=== PATIENT | male | born 1940 | race African-American/Black ===

== ENCOUNTER 2016-11-30 16:44 | Inpatient (IN) | payer MEDICAID ==
[~2016-11-30] VITALS: Ht 165.1 cm; Wt 67.4 kg
[2016-11-30] MEDS ORDERED: methylPREDNISolone SOD SUCC 125 MG/2 ML VL IV ONE (18:15)
[2016-11-30 18:33] LABS: Basophils # (auto) 0.1 uL; Basophils % (auto) 0.7 % (0.0-2.0); Eosinophils # (auto) 0.1 uL; Eosinophils % (auto) 0.9 % (0.0-7.0); Hematocrit 38.6 % (41.0-53.0); Hemoglobin 12.5 g/dL (13.5-17.5); Lymphocytes # (auto) 2.5 uL; Lymphocytes % (auto) 25.3 % (10.0-50.0); Mean Corpuscular Hgb Conc. 32.5 g/dL (32.0-36.0); Mean Corpuscular Volume 86.4 fL (80.0-100.0); Mean Platelet Volume 9.6 fL (6.9-10.8); Monocytes # (auto) 0.8 uL; Monocytes % (auto) 8.2 % (0.0-12.0); Neutrophils # (auto) 6.5 uL; Neutrophils % (auto) 64.9 % (37.0-80.0); Nucleated Red Blood Cells % 0.1 %; Platelet Count (auto) 200 10^3/uL (140-450); Red Cell Distribution Width 15.9 % (11.8-14.3)
[2016-11-30] MEDS ORDERED: GASTROGRAFIN 120 ML SOL ONE (18:37)
[2016-11-30 18:39] LABS: Albumin 3.5 g/dL (3.4-5.0); Alkaline Phosphatase 87 U/L (45-117); Anion Gap 12 (5-15); Aspartate Aminotransferase 32 U/L (15-37); BUN/Creatinine Ratio 14.1; Bilirubin, Total 0.6 mg/dL (0.2-1.0); Blood Urea Nitrogen 14 mg/dL (7-18); Calcium 8.8 mg/dL (8.5-10.1); Carbon Dioxide 21 mmol/L (21-32); Chloride 110 mmol/L (98-107); GFR African American 95 mL/min; GFR Non-African American 79 mL/min; Glucose 105 mg/dL (74-106); Sodium 143 mmol/L (136-145)
[2016-11-30 20:14] LABS: B-Type Natriuretic Peptide 25.8 pg/mL (0-100)
[2016-11-30 20:22] LABS: Temperature: 22.4 C (20.0-25.0)
[2016-11-30] MEDS ORDERED: AZITHROMYCIN 500MG/D5W 250ML 250 ML IV ONE (21:00)
[2016-11-30] MEDS ORDERED: MORPHINE SULF INJ 2 MG/ML SYRINGE 1ML IV PRN (21:00)
[2016-11-30] MEDS ORDERED: ONDANSETRON HCL 4 MG/2 ML VIAL IV PRN (21:00)
[2016-11-30] MEDS ORDERED: HYDROcodone-ACET 5/325MG TAB PO PRN (21:00)
[2016-11-30] MEDS ORDERED: TEMAZEPAM 15 MG CAP PO PRN (21:00)
[2016-11-30] MEDS ORDERED: NAPROXEN 500 MG TAB PO PRN (21:00)
[2016-11-30] MEDS ORDERED: PROMETHAZINE W/CODEINE 5 ML ORAL SYRUP PO PRN (21:00)
[2016-11-30] MEDS: GABAPENTIN 100 MG CAP PO SCH (22:00)
[2016-11-30] MEDS ORDERED: HYDR-4683 PO (22:07)
[2016-11-30 22:08] VITALS: BP 133/98
[2016-12-01 04:56] VITALS: BP 137/69
[2016-12-01] MEDS: GABAPENTIN 100 MG CAP PO SCH ×3 (05:51→21:40)
[2016-12-01 08:00] VITALS: BP 142/79
[2016-12-01] MEDS: AZITHROMYCIN 500MG/D5W 250ML 250 ML IV SCH (10:25)
[2016-12-01 13:00] VITALS: BP 149/65
[2016-12-01] MEDS: ALBUTEROL SULF 2.5 MG/0.5ML(0.5%) NEB SOLN NEB SCH ×2 (14:23→19:33)
[2016-12-01] MEDS: PANTOPRAZOLE 40 MG/10 ML VIAL IV SCH (15:08)
[2016-12-01 16:10] VITALS: BP 149/65
[2016-12-01 16:30] VITALS: BP 136/71
[2016-12-01 22:00] VITALS: BP 114/63
[2016-12-02] MEDS: ALBUTEROL SULF 2.5 MG/0.5ML(0.5%) NEB SOLN NEB SCH ×3 (03:53→12:00)
[2016-12-02 05:00] VITALS: BP 126/70
[2016-12-02] MEDS: GABAPENTIN 100 MG CAP PO SCH ×2 (06:00→14:16)
[2016-12-02 07:04] LABS: INR 1.02 (0.9-1.15); Partial Thromboplastin Time 24.9 sec (22.64-33.71); Prothrombin Time 11.1 sec (9.37-12.3)
[2016-12-02 08:00] VITALS: BP 118/61
[2016-12-02 09:00] VITALS: BP 118/61
[2016-12-02] MEDS: AZITHROMYCIN 500MG/D5W 250ML 250 ML IV SCH (09:20)
[2016-12-02] MEDS: PANTOPRAZOLE 40 MG/10 ML VIAL IV SCH (09:21)
[2016-12-02] MEDS ORDERED: LIDOCAINE VISCOUS 2% 15ML UD ONE (10:47)
[2016-12-02] MEDS ORDERED: SODIUM CHLORIDE LOCK 10 ML ONE (10:47)
[2016-12-02] MEDS ORDERED: diphenhdrAMINE HCL 50 MG/1 ML VL ONE (10:48)
[2016-12-02] MEDS: MIDAZOLAM HCL 5 MG/ML-1ML VIAL ONE ×2 (12:03→12:08)
[2016-12-02] MEDS: fentaNYL CITRATE 100 MCG/2 ML VL ONE ×2 (12:03→12:08)
[2016-12-02 13:56] VITALS: BP 114/67
[2016-12-02 16:12] VITALS: BP 120/67
[2016-12-02] MEDS ORDERED: PANTOPRAZOLE 40 MG TAB PO SCH (22:00)
== END 2016-12-02 17:40 | disposition home or self-care (01) | DRG 243 ==
LOC: ER 16:44 → OVERFLOW 16:45 → WEST WING 21:40
PROVIDERS: ADMIT Nurse Practitioner Family; ATTEND Family Medicine
PROC: 0DB28ZX Excision of Middle Esophagus, Via Natural or Artificial Opening Endoscopic, Diagnostic (ICD-10-PCS; principal; 2016-12-02 12:00)
DX: K22.2 Esophageal obstruction (principal); J18.1 Lobar pneumonia, unspecified organism; C34.90 Malignant neoplasm of unspecified part of unspecified bronchus or lung; K22.10 Ulcer of esophagus without bleeding; I70.0 Atherosclerosis of aorta; M19.90 Unspecified osteoarthritis, unspecified site; Z80.9 Family history of malignant neoplasm, unspecified
CPT/HCPCS: 36415; 71010; 74220; 80053; 83605; 83880; 84484; 85025; 85610; 85730; 87040; 94640; 94761; 96374; 96375; C9113; J2250

== ENCOUNTER 2017-04-06 16:36 | Inpatient (IN) | payer MEDICAID ==
[~2017-04-06] VITALS: Ht 175.3 cm; Wt 77.0 kg
[~2017-04-06 16:36] MED LIST: HYDR-4683 PO
[2017-04-06] MEDS: SODIUM CHLORIDE 0.9% 1,000 ML IV ONE (16:42)
[2017-04-06] MEDS ORDERED: DOCUSATE SOD 100 MG CAP PO PRN (18:30)
[2017-04-06] MEDS ORDERED: ONDANSETRON HCL 4 MG/2 ML VIAL IV PRN (18:30)
[2017-04-06] MEDS ORDERED: TEMAZEPAM 15 MG CAP PO PRN (18:30)
[2017-04-06] MEDS ORDERED: MORPHINE SULFATE 4 MG/ML SYR/VIAL IV PRN (18:30)
[2017-04-06] MEDS ORDERED: SODIUM CHLORIDE 0.9% 2,000 ML IV ONE (18:30)
[2017-04-06] MEDS ORDERED: ACETAMINOPHEN 325 MG TAB PO PRN (18:30)
[2017-04-06] MEDS ORDERED: HYDROcodone-ACET 5/325MG TAB PO PRN (18:30)
[2017-04-06] MEDS ORDERED: cefTRIAXone 1GM/10ml IVPUSH 10 ML IV ONE (18:30)
[2017-04-06 18:36] LABS: Hematocrit 23.6 % (41.0-53.0); Hemoglobin 7.5 g/dL (13.5-17.5); Mean Corpuscular Hemoglobin 28.2 pg (28.0-32.0); Mean Corpuscular Hgb Conc. 31.8 g/dL (32.0-36.0); Mean Corpuscular Volume 88.7 fL (80.0-100.0); Platelet Count (auto) 267 10^3/uL (140-450); Red Blood Cells 2.66 10^6/uL (4.5-5.90); White Blood Cell 13.3 10^3/uL (4.4-10.8)
[2017-04-06 18:42] LABS: Basophils % (manual) 0 (0.0-2.0); Blast Cells 0; Eosinophils % (manual) 0 (0-7); Metamyelocytes % 0; Myelocytes % 0; Promyelocytes % 0
[2017-04-06] MEDS ORDERED: MULTIPLE VITAMIN TAB PO ONE (18:45)
[2017-04-06 18:48] LABS: Albumin 1.6 g/dL (3.4-5.0); BUN/Creatinine Ratio 26.3; Calcium 7.8 mg/dL (8.5-10.1); Potassium 3.4 mmol/L (3.5-5.1)
[2017-04-06 18:49] LABS: INR 1.17 (0.9-1.15); Partial Thromboplastin Time 29.4 sec (22.64-33.71); Prothrombin Time 12.8 sec (9.37-12.3)
[2017-04-06 18:53] LABS: Bilirubin, Total 0.4 mg/dL (0.2-1.0); Lactic Acid w/Reflex 2.1 mmol/L (0.4-2.0); Total Protein 6.9 g/dL (6.4-8.2)
[2017-04-06] MEDS: SODIUM CHLORIDE 0.9% 1,000 ML IV SCH ×2 (18:53→21:02)
[2017-04-06 19:17] LABS: Band Neutrophils % (manual) 2
[2017-04-06 19:18] LABS: Lymphocytes % (manual) 15 (10.0-50.0); Monocytes % (manual) 5 (0-12); Reactive Lymphocytes 1
[2017-04-06] MEDS ORDERED: VANCOMYCIN PER PHARMACY 0 MG IV SCH (19:45)
[2017-04-06] MEDS ORDERED: POTASSIUM CHL 10% (20 MEQ/15ML) 15ml ORAL SOLN PO ONE (19:45)
[2017-04-06] MEDS: VANCOMYCIN 1GM/250ML 250 ML IV SCH (20:00)
[2017-04-06] MEDS: FAMOTIDINE 20 MG TAB PO SCH (21:02)
[2017-04-06] MEDS: BOOST PLUS 8 ounce PO SCH (23:09)
[2017-04-07 06:38] LABS: Red Blood Cells 2.62 10^6/uL (4.5-5.90)
[2017-04-07 06:41] LABS: Albumin 1.6 g/dL (3.4-5.0); BUN/Creatinine Ratio 29.1; Calcium 7.7 mg/dL (8.5-10.1); Hematocrit 23.4 % (41.0-53.0); Hemoglobin 7.5 g/dL (13.5-17.5); Mean Corpuscular Hemoglobin 28.5 pg (28.0-32.0); Mean Corpuscular Hgb Conc. 31.9 g/dL (32.0-36.0); Mean Corpuscular Volume 89.4 fL (80.0-100.0); Platelet Count (auto) 252 10^3/uL (140-450); White Blood Cell 12.5 10^3/uL (4.4-10.8)
[2017-04-07 06:44] LABS: Bilirubin, Total 0.3 mg/dL (0.2-1.0); Total Protein 6.5 g/dL (6.4-8.2)
[2017-04-07 06:53] LABS: Red Cell Distribution Width 22.3 % (11.8-14.3)
[2017-04-07 06:56] LABS: Band Neutrophils % (manual) 0; Basophils % (manual) 0 (0.0-2.0); Blast Cells 0; Eosinophils % (manual) 0 (0-7); Metamyelocytes % 0; Myelocytes % 0; Promyelocytes % 0; Reactive Lymphocytes 0
[2017-04-07 09:35] LABS: Lymphocytes % (manual) 12 (10.0-50.0); Monocytes % (manual) 6 (0-12)
[2017-04-07] MEDS: cefTRIAXone 1GM/10ml IVPUSH 10 ML IV SCH (09:51)
[2017-04-07] MEDS: FAMOTIDINE 20 MG TAB PO SCH (09:51)
[2017-04-07] MEDS: BOOST PLUS 8 ounce PO SCH ×4 (09:51→22:00)
[2017-04-07] MEDS: MULTIPLE VITAMIN TAB PO SCH (09:51)
[2017-04-07 13:28] VITALS: BP 113/59
[2017-04-07 13:47] VITALS: BP 113/59
[2017-04-07] MEDS: VANCOMYCIN 1GM/250ML 250 ML IV SCH ×2 (14:10→17:21)
[2017-04-07] MEDS ORDERED: FLUCONAZOLE 200MG/100ML 100 ML IV ONE (15:45)
[2017-04-07 16:13] VITALS: BP 113/59
[2017-04-07 17:00] VITALS: BP 113/65
[2017-04-07 22:00] VITALS: BP 102/67
[2017-04-07] MEDS: PANTOPRAZOLE 40 MG/10 ML VIAL IV SCH (23:24)
[2017-04-08] VITALS (17 sets, daily range): BP systolic 90–122; BP diastolic 52–95
[2017-04-08] MEDS: SODIUM CHLORIDE 0.9% 1,000 ML IV SCH ×2 (03:50→21:29)
[2017-04-08] MEDS: BOOST PLUS 8 ounce PO SCH ×4 (06:00→21:35)
[2017-04-08 07:46] LABS: Basophils # (auto) 0.1 uL; Eosinophils # (auto) 0 uL; Monocytes # (auto) 0.7 uL; Neutrophils # (auto) 10.2 uL
[2017-04-08 07:49] LABS: Basophils % (auto) 0.6 % (0.0-2.0); Hematocrit 21.5 % (41.0-53.0); Lymphocytes # (auto) 1.7 uL; Lymphocytes % (auto) 13.3 % (10.0-50.0); Mean Corpuscular Hemoglobin 28.8 pg (28.0-32.0); Mean Corpuscular Hgb Conc. 31.9 g/dL (32.0-36.0); Mean Corpuscular Volume 90.3 fL (80.0-100.0); Monocytes % (auto) 5.7 % (0.0-12.0); Neutrophils % (auto) 80.4 % (37.0-80.0); Nucleated Red Blood Cells % 0.7 %; Platelet Count (auto) 242 10^3/uL (140-450); Red Blood Cells 2.38 10^6/uL (4.5-5.90); White Blood Cell 12.7 10^3/uL (4.4-10.8)
[2017-04-08 07:53] LABS: Red Cell Distribution Width 23.3 % (11.8-14.3)
[2017-04-08 07:58] LABS: Hemoglobin 6.9 g/dL (13.5-17.5)
[2017-04-08] MEDS: VANCOMYCIN 1GM/250ML 250 ML IV SCH ×2 (08:00→08:15)
[2017-04-08 08:02] LABS: Albumin 1.4 g/dL (3.4-5.0); BUN/Creatinine Ratio 21.5; Calcium 7.7 mg/dL (8.5-10.1); Potassium 3.9 mmol/L (3.5-5.1)
[2017-04-08 08:05] LABS: Bilirubin, Total 0.4 mg/dL (0.2-1.0); Total Protein 5.9 g/dL (6.4-8.2)
[2017-04-08] MEDS: PANTOPRAZOLE 40 MG/10 ML VIAL IV SCH ×2 (10:00→21:35)
[2017-04-08] MEDS ORDERED: TPN PER PHARMACY 0 ML IV SCH (10:45)
[2017-04-08] MEDS ORDERED: FUROSEMIDE 20 MG/2 ML VIAL IV ONE (10:45)
[2017-04-08] MEDS: cefTRIAXone 1GM/10ml IVPUSH 10 ML IV SCH (11:24)
[2017-04-08] MEDS: MULTIPLE VITAMIN TAB PO SCH (11:27)
[2017-04-08] MEDS: FLUCONAZOLE 200MG/100ML 100 ML IV SCH (11:28)
[2017-04-08 11:40] LABS: Magnesium 2.2 mg/dL (1.6-2.6); Phosphorus 3.9 mg/dL (2.5-4.90); Pre Albumin < 3.0 mg/dL (20.0-40.0); Triglycerides 97 mg/dL (< 150)
[2017-04-08 12:02] LABS: INR 1.18 (0.9-1.15); Partial Thromboplastin Time 32.7 sec (22.64-33.71); Prothrombin Time 12.9 sec (9.37-12.3)
[2017-04-08] MEDS ORDERED: DEXTROSE (50%) 50ML SYRG IV SCH (12:45)
[2017-04-08] MEDS: NYSTATIN (MOUTH-THROAT) 500,000 UNITS/5 ML SUSP MT SCH ×3 (14:25→21:35)
[2017-04-08] MEDS: InsuLIN REG 1unit/0.01ml Soln (100units/ml) SC SCH (18:00)
[2017-04-08] MEDS: ACCU-CHEK COMFORT CURVE STRIP VI SCH (18:00)
[2017-04-08] MEDS ORDERED: TPN PER PHARMACY IV NR ×8 (20:00)
[2017-04-09] MEDS: ACCU-CHEK COMFORT CURVE STRIP VI SCH ×5 (00:05→23:52)
[2017-04-09] MEDS: VANCOMYCIN 1GM/250ML 250 ML IV SCH ×2 (02:25→20:04)
[2017-04-09 05:00] VITALS: BP 117/74
[2017-04-09] MEDS: BOOST PLUS 8 ounce PO SCH ×4 (05:35→22:40)
[2017-04-09] MEDS: InsuLIN REG 1unit/0.01ml Soln (100units/ml) SC SCH ×5 (05:53→23:47)
[2017-04-09] MEDS: NYSTATIN (MOUTH-THROAT) 500,000 UNITS/5 ML SUSP MT SCH ×4 (06:12→22:40)
[2017-04-09 06:32] LABS: Basophils # (auto) 0 uL; Basophils % (auto) 0.4 % (0.0-2.0); Eosinophils # (auto) 0 uL; Hematocrit 29.3 % (41.0-53.0); Hemoglobin 9.7 g/dL (13.5-17.5); Lymphocytes % (auto) 18.4 % (10.0-50.0); Mean Corpuscular Hemoglobin 29.8 pg (28.0-32.0); Mean Corpuscular Volume 90.3 fL (80.0-100.0); Monocytes # (auto) 0.8 uL; Monocytes % (auto) 7.1 % (0.0-12.0); Neutrophils # (auto) 7.9 uL; Neutrophils % (auto) 74.1 % (37.0-80.0); Nucleated Red Blood Cells % 0.2 %; Platelet Count (auto) 214 10^3/uL (140-450); Red Blood Cells 3.25 10^6/uL (4.5-5.90); Red Cell Distribution Width 19.8 % (11.8-14.3); White Blood Cell 10.7 10^3/uL (4.4-10.8)
[2017-04-09 06:47] LABS: Albumin 1.4 g/dL (3.4-5.0); BUN/Creatinine Ratio 16.1; Bilirubin, Total 0.4 mg/dL (0.2-1.0); Calcium 7.8 mg/dL (8.5-10.1); Magnesium 2.2 mg/dL (1.6-2.6); Phosphorus 3.8 mg/dL (2.5-4.90); Potassium 3.3 mmol/L (3.5-5.1); Total Protein 6.2 g/dL (6.4-8.2)
[2017-04-09 08:20] VITALS: BP 107/66
[2017-04-09] MEDS: SOD CHL IV SCH ×2 (09:15→12:04)
[2017-04-09] MEDS: KCL 20 MEQ IV SCH ×2 (09:15→12:04)
[2017-04-09] MEDS ORDERED: POTASSIUM CHL 20MEQ/100ML 100 ML IV ONE (09:30)
[2017-04-09] MEDS: cefTRIAXone 1GM/10ml IVPUSH 10 ML IV SCH (09:46)
[2017-04-09] MEDS: FLUCONAZOLE 200MG/100ML 100 ML IV SCH (09:47)
[2017-04-09] MEDS: PANTOPRAZOLE 40 MG/10 ML VIAL IV SCH ×2 (09:47→22:40)
[2017-04-09] MEDS: MULTIPLE VITAMIN TAB PO SCH (09:49)
[2017-04-09 11:55] VITALS: BP 116/66
[2017-04-09] MEDS ORDERED: LIDOCAINE 1% HCL (LOCAL ANESTH.) INJ 20ML MDV ID ONE (14:30)
[2017-04-09 16:42] VITALS: BP 129/67
[2017-04-09] MEDS: SODIUM CHLORIDE 0.9% 1,000 ML IV SCH (18:21)
[2017-04-09] MEDS ORDERED: PPN PER PHARMACY IV NR ×9 (20:00)
[2017-04-09 22:00] VITALS: BP 140/70
[2017-04-09] MEDS: SODIUM CHLOR 0.9% PF (SALINE LOCK) 10ML VIAL IV SCH (22:40)
[2017-04-09] MEDS: ALBUTEROL SULF 2.5 MG/0.5ML(0.5%) NEB SOLN NEB PRN (23:08)
[2017-04-09] MEDS: IPRATROPIUM BROM 0.5 MG/2.5ML INH SOL NEB PRN (23:08)
[2017-04-10 05:00] VITALS: BP 113/52
[2017-04-10] MEDS: SODIUM CHLORIDE 0.9% 1,000 ML IV SCH ×2 (05:50→23:54)
[2017-04-10] MEDS: NYSTATIN (MOUTH-THROAT) 500,000 UNITS/5 ML SUSP MT SCH ×4 (06:00→23:53)
[2017-04-10] MEDS: BOOST PLUS 8 ounce PO SCH ×4 (06:00→23:54)
[2017-04-10] MEDS: InsuLIN REG 1unit/0.01ml Soln (100units/ml) SC SCH ×3 (06:00→18:00)
[2017-04-10] MEDS: ACCU-CHEK COMFORT CURVE STRIP VI SCH ×3 (06:37→18:20)
[2017-04-10 07:07] LABS: Basophils # (auto) 0 uL; Basophils % (auto) 0.4 % (0.0-2.0); Eosinophils # (auto) 0 uL; Hematocrit 27.5 % (41.0-53.0); Hemoglobin 8.9 g/dL (13.5-17.5); Lymphocytes # (auto) 1.5 uL; Lymphocytes % (auto) 12.3 % (10.0-50.0); Mean Corpuscular Hemoglobin 29.6 pg (28.0-32.0); Mean Corpuscular Hgb Conc. 32.4 g/dL (32.0-36.0); Mean Corpuscular Volume 91.4 fL (80.0-100.0); Monocytes # (auto) 0.8 uL; Monocytes % (auto) 6.5 % (0.0-12.0); Neutrophils % (auto) 80.8 % (37.0-80.0); Nucleated Red Blood Cells % 0.1 %; Platelet Count (auto) 148 10^3/uL (140-450); Red Blood Cells 3.01 10^6/uL (4.5-5.90); White Blood Cell 12.3 10^3/uL (4.4-10.8)
[2017-04-10 07:17] LABS: Red Cell Distribution Width 20.5 % (11.8-14.3)
[2017-04-10 07:23] LABS: Albumin 1.2 g/dL (3.4-5.0); BUN/Creatinine Ratio 16.9; Bilirubin, Total 0.4 mg/dL (0.2-1.0); Calcium 7.1 mg/dL (8.5-10.1); Potassium 3.4 mmol/L (3.5-5.1); Total Protein 5.8 g/dL (6.4-8.2)
[2017-04-10 07:46] VITALS: BP 113/61
[2017-04-10] MEDS: SODIUM CHLOR 0.9% PF (SALINE LOCK) 10ML VIAL IV SCH ×2 (10:00→23:53)
[2017-04-10] MEDS: FLUCONAZOLE 200MG/100ML 100 ML IV SCH (10:37)
[2017-04-10] MEDS: PANTOPRAZOLE 40 MG/10 ML VIAL IV SCH ×2 (10:37→23:53)
[2017-04-10] MEDS: cefTRIAXone 1GM/10ml IVPUSH 10 ML IV SCH (10:37)
[2017-04-10] MEDS: MULTIPLE VITAMIN TAB PO SCH (10:38)
[2017-04-10 11:47] VITALS: BP 106/49
[2017-04-10] MEDS ORDERED: POTASSIUM CHL 20MEQ/100ML 100 ML IV ONE (12:15)
[2017-04-10] MEDS ORDERED: POTASSIUM CHLORIDE 20 MEQ, LIDOCAINE 1% (LOCAL ANESTH.) 2 ML in SODIUM CHL 0.9% 100 ML IV ONE (12:30)
[2017-04-10 14:40] VITALS: BP 106/49
[2017-04-10] MEDS: VANCOMYCIN 1GM/250ML 250 ML IV SCH (15:39)
[2017-04-10] MEDS ORDERED: FUROSEMIDE 40 MG/4 ML VIAL IV ONE (15:45)
[2017-04-10 16:28] VITALS: BP 121/48
[2017-04-10] MEDS ORDERED: TPN PER PHARMACY IV NR ×11 (20:00)
[2017-04-10 22:00] VITALS: BP 118/89
[2017-04-11] MEDS: ACCU-CHEK COMFORT CURVE STRIP VI SCH ×4 (00:23→18:00)
[2017-04-11] MEDS: InsuLIN REG 1unit/0.01ml Soln (100units/ml) SC SCH ×4 (00:29→18:00)
[2017-04-11] MEDS: NYSTATIN (MOUTH-THROAT) 500,000 UNITS/5 ML SUSP MT SCH ×4 (04:12→22:07)
[2017-04-11] MEDS: BOOST PLUS 8 ounce PO SCH ×4 (04:13→22:00)
[2017-04-11 05:29] VITALS: BP 129/65
[2017-04-11 07:04] LABS: Albumin 1.4 g/dL (3.4-5.0); BUN/Creatinine Ratio 23.3; Bilirubin, Total 0.4 mg/dL (0.2-1.0); Calcium 7.9 mg/dL (8.5-10.1); Magnesium 2.3 mg/dL (1.6-2.6); Phosphorus 3.7 mg/dL (2.5-4.90); Potassium 3.4 mmol/L (3.5-5.1); Total Protein 6.6 g/dL (6.4-8.2)
[2017-04-11 09:00] VITALS: BP 98/65
[2017-04-11] MEDS: SODIUM CHLOR 0.9% PF (SALINE LOCK) 10ML VIAL IV SCH ×2 (10:00→22:07)
[2017-04-11] MEDS: FLUCONAZOLE 200MG/100ML 100 ML IV SCH (10:40)
[2017-04-11] MEDS: MULTIPLE VITAMIN TAB PO SCH (10:41)
[2017-04-11] MEDS: PANTOPRAZOLE 40 MG/10 ML VIAL IV SCH ×2 (10:46→22:07)
[2017-04-11] MEDS: cefTRIAXone 1GM/10ml IVPUSH 10 ML IV SCH (10:46)
[2017-04-11] MEDS: VANCOMYCIN 1GM/250ML 250 ML IV SCH (10:49)
[2017-04-11] MEDS: SODIUM CHLORIDE 0.9% 1,000 ML IV SCH (11:15)
[2017-04-11] MEDS ORDERED: POTASSIUM CHL 20MEQ/100ML 100 ML IV ONE (11:30)
[2017-04-11 13:00] VITALS: BP 91/48
[2017-04-11 18:11] VITALS: BP 95/51
[2017-04-11] MEDS ORDERED: TPN PER PHARMACY IV NR ×9 (20:00)
[2017-04-11] MEDS ORDERED: SODIUM CHLORIDE 0.9% 1,000 ML IV SCH (20:00)
[2017-04-11] MEDS: ALBUTEROL SULF 2.5 MG/0.5ML(0.5%) NEB SOLN NEB PRN (21:12)
[2017-04-11] MEDS: IPRATROPIUM BROM 0.5 MG/2.5ML INH SOL NEB PRN (21:12)
[2017-04-11 22:29] VITALS: BP 118/55
[2017-04-12] MEDS: VANCOMYCIN 1GM/250ML 250 ML IV SCH ×2 (02:32→19:57)
[2017-04-12] MEDS: ACCU-CHEK COMFORT CURVE STRIP VI SCH ×5 (02:33→23:59)
[2017-04-12] MEDS: BOOST PLUS 8 ounce PO SCH ×4 (04:45→21:55)
[2017-04-12] MEDS: NYSTATIN (MOUTH-THROAT) 500,000 UNITS/5 ML SUSP MT SCH ×4 (05:15→21:55)
[2017-04-12] MEDS: InsuLIN REG 1unit/0.01ml Soln (100units/ml) SC SCH ×5 (05:15→23:59)
[2017-04-12 05:28] VITALS: BP 104/51
[2017-04-12 05:43] LABS: Albumin 1.2 g/dL (3.4-5.0); BUN/Creatinine Ratio 22.4; Calcium 7.7 mg/dL (8.5-10.1); Magnesium 2.1 mg/dL (1.6-2.6); Potassium 4.2 mmol/L (3.5-5.1)
[2017-04-12 05:51] LABS: Bilirubin, Total 0.5 mg/dL (0.2-1.0); Phosphorus 2.6 mg/dL (2.5-4.90); Total Protein 6.4 g/dL (6.4-8.2)
[2017-04-12 08:24] VITALS: BP 122/91
[2017-04-12] MEDS: MULTIPLE VITAMIN TAB PO SCH (10:00)
[2017-04-12] MEDS: PANTOPRAZOLE 40 MG/10 ML VIAL IV SCH ×2 (10:37→21:55)
[2017-04-12] MEDS: FLUCONAZOLE 200MG/100ML 100 ML IV SCH (10:37)
[2017-04-12] MEDS: cefTRIAXone 1GM/10ml IVPUSH 10 ML IV SCH (10:37)
[2017-04-12] MEDS: SODIUM CHLOR 0.9% PF (SALINE LOCK) 10ML VIAL IV SCH ×2 (10:38→21:55)
[2017-04-12] MEDS: SODIUM CHLORIDE 0.9% 1,000 ML IV SCH (13:11)
[2017-04-12 13:23] VITALS: BP 108/55
[2017-04-12 16:53] VITALS: BP 114/63
[2017-04-12] MEDS ORDERED: TPN PER PHARMACY IV NR ×9 (20:00)
[2017-04-12 22:31] VITALS: BP 157/51
[2017-04-13 04:51] VITALS: BP 104/56
[2017-04-13] MEDS: InsuLIN REG 1unit/0.01ml Soln (100units/ml) SC SCH ×3 (06:00→18:00)
[2017-04-13] MEDS: NYSTATIN (MOUTH-THROAT) 500,000 UNITS/5 ML SUSP MT SCH ×4 (06:00→21:28)
[2017-04-13] MEDS: BOOST PLUS 8 ounce PO SCH ×4 (06:00→21:28)
[2017-04-13] MEDS: ACCU-CHEK COMFORT CURVE STRIP VI SCH ×3 (06:08→18:24)
[2017-04-13 06:45] LABS: Basophils # (auto) 0.1 uL; Basophils % (auto) 0.7 % (0.0-2.0); Eosinophils # (auto) 0 uL; Eosinophils % (auto) 0.3 % (0.0-7.0); Hematocrit 27.4 % (41.0-53.0); Hemoglobin 8.8 g/dL (13.5-17.5); Lymphocytes # (auto) 1.8 uL; Lymphocytes % (auto) 13.1 % (10.0-50.0); Mean Corpuscular Hemoglobin 29.1 pg (28.0-32.0); Mean Corpuscular Hgb Conc. 32.1 g/dL (32.0-36.0); Mean Corpuscular Volume 90.5 fL (80.0-100.0); Monocytes # (auto) 1.4 uL; Monocytes % (auto) 10.5 % (0.0-12.0); Neutrophils # (auto) 10.2 uL; Neutrophils % (auto) 75.4 % (37.0-80.0); Nucleated Red Blood Cells % 0.1 %; Platelet Count (auto) 171 10^3/uL (140-450); Red Blood Cells 3.03 10^6/uL (4.5-5.90); White Blood Cell 13.5 10^3/uL (4.4-10.8)
[2017-04-13 06:58] LABS: Albumin 1.2 g/dL (3.4-5.0); Bilirubin, Total 0.7 mg/dL (0.2-1.0); Calcium 7.9 mg/dL (8.5-10.1); Magnesium 2.5 mg/dL (1.6-2.6); Phosphorus 3.2 mg/dL (2.5-4.90); Potassium 4.7 mmol/L (3.5-5.1); Pre Albumin 3.6 mg/dL (20.0-40.0); Total Protein 6.8 g/dL (6.4-8.2)
[2017-04-13 08:40] VITALS: BP 113/59
[2017-04-13] MEDS: cefTRIAXone 1GM/10ml IVPUSH 10 ML IV SCH (09:10)
[2017-04-13] MEDS: SODIUM CHLOR 0.9% PF (SALINE LOCK) 10ML VIAL IV SCH ×2 (09:11→21:28)
[2017-04-13] MEDS: PANTOPRAZOLE 40 MG/10 ML VIAL IV SCH ×2 (09:11→21:27)
[2017-04-13] MEDS: FLUCONAZOLE 200MG/100ML 100 ML IV SCH (09:11)
[2017-04-13 09:53] VITALS: BP 113/59
[2017-04-13] MEDS: MULTIPLE VITAMIN TAB PO SCH (10:00)
[2017-04-13] MEDS: SODIUM CHLORIDE 0.9% 1,000 ML IV SCH (11:02)
[2017-04-13 12:00] VITALS: BP 110/63
[2017-04-13] MEDS ORDERED: FUROSEMIDE 40 MG/4 ML VIAL IV ONE (14:30)
[2017-04-13] MEDS: VANCOMYCIN 1GM/250ML 250 ML IV SCH (14:58)
[2017-04-13] MEDS ORDERED: ALBUMIN 25% 100 ML IV SCH (15:00)
[2017-04-13 17:00] VITALS: BP 106/59
[2017-04-13] MEDS ORDERED: ALBUMIN 25% 0 ML IV ONE ×2 (19:37→19:38)
[2017-04-13] MEDS: ALBUMIN 25% 100 ML IV SCH ×2 (19:57→21:27)
[2017-04-13] MEDS ORDERED: TPN PER PHARMACY IV NR ×8 (20:00)
[2017-04-13] MEDS: MEROPENEM 1gm/20ml IVPUSH 20 ML IV SCH (21:28)
[2017-04-13 22:24] VITALS: BP 113/68
[2017-04-14] MEDS: ACCU-CHEK COMFORT CURVE STRIP VI SCH ×4 (00:05→17:11)
[2017-04-14 05:17] VITALS: BP 101/53
[2017-04-14] MEDS: BOOST PLUS 8 ounce PO SCH ×4 (06:00→22:00)
[2017-04-14] MEDS: InsuLIN REG 1unit/0.01ml Soln (100units/ml) SC SCH ×4 (06:00→17:10)
[2017-04-14] MEDS: NYSTATIN (MOUTH-THROAT) 500,000 UNITS/5 ML SUSP MT SCH ×4 (06:00→22:00)
[2017-04-14] MEDS: MEROPENEM 1gm/20ml IVPUSH 20 ML IV SCH ×3 (06:19→22:36)
[2017-04-14 08:27] VITALS: BP 100/50
[2017-04-14] MEDS: PANTOPRAZOLE 40 MG/10 ML VIAL IV SCH ×2 (08:32→22:35)
[2017-04-14] MEDS: VANCOMYCIN 1GM/250ML 250 ML IV SCH (08:33)
[2017-04-14] MEDS: SODIUM CHLOR 0.9% PF (SALINE LOCK) 10ML VIAL IV SCH ×2 (08:33→22:35)
[2017-04-14] MEDS ORDERED: TEMAZEPAM 15 MG CAP PO PRN (09:30)
[2017-04-14] MEDS ORDERED: HYDROcodone-ACET 5/325MG TAB PO PRN (09:30)
[2017-04-14] MEDS ORDERED: MORPHINE SULFATE 4 MG/ML SYR/VIAL IV PRN (09:30)
[2017-04-14 09:42] LABS: Albumin 2.1 g/dL (3.4-5.0); BUN/Creatinine Ratio 25.4; Bilirubin, Total 0.9 mg/dL (0.2-1.0); Calcium 8.3 mg/dL (8.5-10.1); Magnesium 2.3 mg/dL (1.6-2.6); Phosphorus 3.6 mg/dL (2.5-4.90); Potassium 3.7 mmol/L (3.5-5.1); Total Protein 7.1 g/dL (6.4-8.2)
[2017-04-14] MEDS: MULTIPLE VITAMIN TAB PO SCH (10:00)
[2017-04-14] MEDS ORDERED: FUROSEMIDE 40 MG/4 ML VIAL IV SCH (10:00)
[2017-04-14] MEDS: SODIUM CHLORIDE 0.9% 1,000 ML IV SCH (11:15)
[2017-04-14 12:18] VITALS: BP 118/61
[2017-04-14] MEDS ORDERED: LORazepam 2MG/ML-1ML VIAL IV ONE (14:00)
[2017-04-14 17:00] VITALS: BP 118/71
[2017-04-14] MEDS ORDERED: TPN PER PHARMACY IV NR ×9 (20:00)
[2017-04-14 21:51] VITALS: BP 129/77
[2017-04-14] MEDS: IPRATROPIUM BROM 0.5 MG/2.5ML INH SOL NEB PRN (22:34)
[2017-04-15] MEDS: VANCOMYCIN 1GM/250ML 250 ML IV SCH ×2 (01:46→20:09)
[2017-04-15 05:23] VITALS: BP 135/74
[2017-04-15] MEDS: NYSTATIN (MOUTH-THROAT) 500,000 UNITS/5 ML SUSP MT SCH ×4 (06:00→20:08)
[2017-04-15] MEDS: BOOST PLUS 8 ounce PO SCH ×4 (06:00→20:08)
[2017-04-15] MEDS: InsuLIN REG 1unit/0.01ml Soln (100units/ml) SC SCH ×5 (06:00→23:45)
[2017-04-15] MEDS: ACCU-CHEK COMFORT CURVE STRIP VI SCH ×5 (06:16→23:44)
[2017-04-15] MEDS: MEROPENEM 1gm/20ml IVPUSH 20 ML IV SCH ×3 (06:17→21:53)
[2017-04-15 07:14] LABS: Basophils # (auto) 0.1 uL; Basophils % (auto) 0.4 % (0.0-2.0); Eosinophils # (auto) 0.1 uL; Eosinophils % (auto) 0.3 % (0.0-7.0); Hematocrit 28.8 % (41.0-53.0); Hemoglobin 9.2 g/dL (13.5-17.5); Lymphocytes % (auto) 9.1 % (10.0-50.0); Mean Corpuscular Hemoglobin 28.5 pg (28.0-32.0); Mean Corpuscular Hgb Conc. 31.8 g/dL (32.0-36.0); Mean Corpuscular Volume 89.7 fL (80.0-100.0); Monocytes # (auto) 2.1 uL; Monocytes % (auto) 9.3 % (0.0-12.0); Neutrophils # (auto) 18.1 uL; Neutrophils % (auto) 80.9 % (37.0-80.0); Nucleated Red Blood Cells % 0.2 %; Platelet Count (auto) 171 10^3/uL (140-450); Red Blood Cells 3.21 10^6/uL (4.5-5.90); Red Cell Distribution Width 19.1 % (11.8-14.3); White Blood Cell 22.3 10^3/uL (4.4-10.8)
[2017-04-15 07:36] LABS: BUN/Creatinine Ratio 27.1; Bilirubin, Total 1.1 mg/dL (0.2-1.0); Calcium 8.7 mg/dL (8.5-10.1); Magnesium 2.4 mg/dL (1.6-2.6); Phosphorus 2.9 mg/dL (2.5-4.90); Potassium 3.8 mmol/L (3.5-5.1); Pre Albumin 5.6 mg/dL (20.0-40.0)
[2017-04-15 09:00] VITALS: BP 109/75
[2017-04-15] MEDS ORDERED: LORazepam 2MG/ML-1ML VIAL IV PRN (09:00)
[2017-04-15] MEDS: MORPHINE SULFATE 4 MG/ML SYR/VIAL IV PRN ×3 (09:30→13:46)
[2017-04-15] MEDS: MULTIPLE VITAMIN TAB PO SCH (09:59)
[2017-04-15] MEDS: PANTOPRAZOLE 40 MG/10 ML VIAL IV SCH ×2 (10:00→20:08)
[2017-04-15] MEDS: SODIUM CHLOR 0.9% PF (SALINE LOCK) 10ML VIAL IV SCH ×2 (10:00→20:08)
[2017-04-15] MEDS: SODIUM CHLORIDE 0.9% 1,000 ML IV SCH (11:15)
[2017-04-15 13:00] VITALS: BP 100/65
[2017-04-15] MEDS ORDERED: ACYCLOVIR 5MG/KG Q8HR PER RX 0 ML IV SCH (14:30)
[2017-04-15] MEDS ORDERED: ACYCLOVIR SOD 50MG/ML 500 MG in D5W 5% 100 ML IV ONE (14:45)
[2017-04-15] MEDS ORDERED: HALOPERIDOL LACTATE 5 MG/ML INJ VIAL IM PRN (15:45)
[2017-04-15] MEDS: ACYCLOVIR SOD IV SCH ×2 (15:59→21:53)
[2017-04-15] MEDS: SODIUM CHL 0.9% IV SCH ×2 (15:59→21:53)
[2017-04-15] MEDS ORDERED: MORPHINE SULFATE 4 MG/ML SYR/VIAL IV PRN (16:00)
[2017-04-15 17:25] VITALS: BP 102/71
[2017-04-15] MEDS ORDERED: TPN PER PHARMACY IV NR ×9 (20:00)
[2017-04-15 21:50] VITALS: BP 145/71
[2017-04-16] MEDS: BOOST PLUS 8 ounce PO SCH (00:27)
[2017-04-16] MEDS: NYSTATIN (MOUTH-THROAT) 500,000 UNITS/5 ML SUSP MT SCH (00:27)
[2017-04-16] MEDS: ACYCLOVIR SOD IV SCH (04:23)
[2017-04-16] MEDS: SODIUM CHL 0.9% IV SCH (04:23)
[2017-04-16] MEDS: MEROPENEM 1gm/20ml IVPUSH 20 ML IV SCH (04:23)
[2017-04-16] MEDS: InsuLIN REG 1unit/0.01ml Soln (100units/ml) SC SCH (04:23)
[2017-04-16] MEDS: ACCU-CHEK COMFORT CURVE STRIP VI SCH (04:24)
== END 2017-04-16 06:17 | disposition expired | DRG 720 ==
LOC: ER 16:36 → OVERFLOW 16:37 → EAST 04-07 13:08
PROVIDERS: ADMIT Internal Medicine; ATTEND Internal Medicine
PROC: 30233N1 Transfusion of Nonautologous Red Blood Cells into Peripheral Vein, Percutaneous Approach (ICD-10-PCS; 2017-04-08)
PROC: 02HV33Z Insertion of Infusion Device into Superior Vena Cava, Percutaneous Approach (ICD-10-PCS; principal; 2017-04-09)
DX: A41.9 Sepsis, unspecified organism (principal); J96.01 Acute respiratory failure with hypoxia; E43 Unspecified severe protein-calorie malnutrition; G93.41 Metabolic encephalopathy; J16.8 Pneumonia due to other specified infectious organisms; D68.9 Coagulation defect, unspecified; C34.91 Malignant neoplasm of unspecified part of right bronchus or lung; B25.9 Cytomegaloviral disease, unspecified; R13.10 Dysphagia, unspecified; E86.0 Dehydration; D63.8 Anemia in other chronic diseases classified elsewhere; E83.51 Hypocalcemia; E87.6 Hypokalemia; F41.9 Anxiety disorder, unspecified; I25.10 Atherosclerotic heart disease of native coronary artery without angina pectoris; I70.0 Atherosclerosis of aorta; J43.9 Emphysema, unspecified; N18.2 Chronic kidney disease, stage 2 (mild); Z66 Do not resuscitate; R62.7 Adult failure to thrive; N40.0 Benign prostatic hyperplasia without lower urinary tract symptoms; B00.9 Herpesviral infection, unspecified; R79.89 Other specified abnormal findings of blood chemistry; T50.995A Adverse effect of other drugs, medicaments and biological substances, initial encounter; Z87.19 Personal history of other diseases of the digestive system; Z85.118 Personal history of other malignant neoplasm of bronchus and lung; Z92.21 Personal history of antineoplastic chemotherapy; Y92.89 Other specified places as the place of occurrence of the external cause; Z68.25 Body mass index [BMI] 25.0-25.9, adult; Z71.3 Dietary counseling and surveillance; Z79.899 Other long term (current) drug therapy
CPT/HCPCS: 36415; 36569; 36600; 71045; 71250; 74176; 80053; 80202; 82040; 82805; 82962; 83605; 83735; 83880; 84100; 84153; 84478; 84484; 85007; 85025; 85027; 85610; 85730; 86644; 86645; 86695; 86696; 86850; 86900; 86901; 86920; 87040; 92610; 93005; 94640; 96361; 96374; 96376; 96379; C9113; G0378; J1450; J1815; J2001; J2405; J3480; J7060; P9047